=== PATIENT | male | born 1975 | race Caucasian/White ===

== ENCOUNTER 2017-02-01 20:25 | Inpatient (IN) | payer MEDICAID ==
[~2017-02-01] VITALS: Ht 177.8 cm; Wt 70.3 kg
[2017-02-01 21:12] LABS: BASOPHIL % 0.6 % (0-2); PLATELET COUNT 316 x10^3mcL (130-400)
[2017-02-01 21:29] LABS: CARBON DIOXIDE 29.1 mmol/L (21-32); CHLORIDE SERUM 102 mmol/L (98-107); CREATININE SERUM 1.1 mg/dL (0.7-1.3); GFR1 > 60 mL/min; GLUCOSE SERUM 104 mg/dL (74-106); POTASSIUM SERUM 4.2 mmol/L (3.5-5.1); SODIUM SERUM 139 mmol/L (136-145)
[2017-02-01 21:34] LABS: ALBUMIN 3.1 g/dL (3.4-5.0); ALKALINE PHOSPHATASE 106 U/L (46-116); ALT/SGPT 30 U/L (16-63); AST/SGOT 26 U/L (15-37); BILIRUBIN TOTAL 0.81 mg/dL (0.20-1.00); TOTAL PROTEIN, SERUM 7.7 g/dL (6.4-8.2)
[2017-02-01] MEDS ORDERED: LASIX20 MG PO (23:48)
[2017-02-02] VITALS (7 sets, daily range): BP systolic 98–122; BP diastolic 71–84
[2017-02-02 02:04] LABS: MAGNESIUM 1.9 mg/dL (1.8-2.4); PHOSPHOROUS 4.3 mg/dL (2.5-4.9)
[2017-02-02 02:06] LABS: CHOLESTEROL/HDL RATIO 3.9
[2017-02-02 02:15] LABS: FREE T4 1.19 ng/dL (0.76-1.46); FREE THYROXINE INDEX 2.7 ug/dL (1.4-4.5); T4(THYROXINE) 7.2 ug/dL (4.7-13.3)
[2017-02-02 02:16] LABS: T3 TOTAL 1.16 ng/mL
[2017-02-02 04:27] LABS: microscopic required? NO
[2017-02-02 04:36] LABS: urine erythrocyte NEGATIVE (NEGATIVE)
[2017-02-02 04:45] LABS: AMPHETAMINE QUAL UR NONE DETECTED (NEG <=1000)
[2017-02-02 06:32] LABS: BASOPHIL % 0.3 % (0-2); PLATELET COUNT 355 x10^3mcL (130-400)
[2017-02-02 06:50] LABS: RED CELL DISTRIBUTION WIDTH 18.7 % (11.5-14.5)
[2017-02-02 07:06] LABS: CALCIUM 9.2 mg/dL (8.5-10.1); CHLORIDE SERUM 100 mmol/L (98-107); CREATININE SERUM 1.3 mg/dL (0.7-1.3); GFR1 > 60 mL/min; GLUCOSE SERUM 76 mg/dL (74-106); PHOSPHOROUS 4.6 mg/dL (2.5-4.9); SODIUM SERUM 139 mmol/L (136-145)
[2017-02-03 05:50] VITALS: BP 111/76
[2017-02-03 06:57] LABS: BASOPHIL % 0.6 % (0-2); PLATELET COUNT 330 x10^3mcL (130-400)
[2017-02-03 07:01] LABS: RED CELL DISTRIBUTION WIDTH 18.7 % (11.5-14.5)
[2017-02-03 07:06] LABS: CALCIUM 9.1 mg/dL (8.5-10.1); CARBON DIOXIDE 27.4 mmol/L (21-32); CHLORIDE SERUM 99 mmol/L (98-107); CREATININE SERUM 1.1 mg/dL (0.7-1.3); GFR1 > 60 mL/min; GLUCOSE SERUM 105 mg/dL (74-106); MAGNESIUM 2.5 mg/dL (1.8-2.4); PHOSPHOROUS 4.6 mg/dL (2.5-4.9); POTASSIUM SERUM 3.8 mmol/L (3.5-5.1); SODIUM SERUM 136 mmol/L (136-145)
[2017-02-03 08:52] VITALS: BP 101/68
[2017-02-03] MEDS ORDERED: CARVEDILOL3.125 M1 PO (12:32)
[2017-02-03] MEDS ORDERED: LASIX40 MG PO (12:33)
[2017-02-03] MEDS ORDERED: BENAZEPRIL10 M1 PO (12:33)
[2017-02-03] MEDS ORDERED: NEIGHBOR P PO (12:35)
[2017-02-03 12:49] VITALS: BP 112/79
[2017-02-03] MEDS ORDERED: ALD25 PO (13:40)
[2017-02-03] MEDS ORDERED: PROAIR HFA8.5 GM IH (13:42)
[2017-02-03 14:29] VITALS: BP 112/79
== END 2017-02-03 15:45 | disposition home or self-care (01) | DRG 194 ==
LOC: ED 20:25 → DU 23:38
PROVIDERS: Emergency Medicine; ADMIT Family Medicine
DX: I50.43 Acute on chronic combined systolic (congestive) and diastolic (congestive) heart failure (principal); N17.0 Acute kidney failure with tubular necrosis; E44.0 Moderate protein-calorie malnutrition; K85.90 Acute pancreatitis without necrosis or infection, unspecified; E11.65 Type 2 diabetes mellitus with hyperglycemia; K21.9 Gastro-esophageal reflux disease without esophagitis; N18.9 Chronic kidney disease, unspecified; F10.20 Alcohol dependence, uncomplicated; F15.21 Other stimulant dependence, in remission; D64.9 Anemia, unspecified; Z68.22 Body mass index [BMI] 22.0-22.9, adult; Z87.891 Personal history of nicotine dependence
CPT/HCPCS: 80307; 82962; 83880; 84439; 94150; G0480; J1940; J7030; J7620; Q0092

== ENCOUNTER 2020-08-24 05:15 | Observation (INO) | payer OTHER ==
[~2020-08-24] VITALS: Ht 177.8 cm; Wt 90.7 kg
[~2020-08-24 05:15] MED LIST: ALD25 PO; BENAZEPRIL10 M1 PO; CARVEDILOL3.125 M1 PO; LASIX20 MG PO; LASIX40 MG PO; NEIGHBOR P PO; PROAIR HFA8.5 GM IH
[2020-08-24 05:21] VITALS: Ht 177.8 cm; Wt 90.7 kg
[2020-08-24] MEDS ORDERED: KLOR-CON M1010 MEQ PO (06:45)
[2020-08-24] MEDS ORDERED: MEN'S MULTIVIT1 EAC1 PO (06:46)
[2020-08-24] MEDS ORDERED: ASPIR 8181 MG PO (06:46)
[2020-08-24] MEDS ORDERED: LIPITOR20 MG PO (06:46)
[2020-08-24] MEDS ORDERED: ZESTRIL10 MG PO (06:47)
[2020-08-24] MEDS ORDERED: BIDIL TABLET1 EACH PO (06:47)
[2020-08-24] MEDS ORDERED: CARVEDILOL25 M1 PO (06:48)
[2020-08-24 07:09] LABS: CALCIUM 8.8 mg/dL (8.5-10.1); CHLORIDE SERUM 103 mmol/L (98-107); CREATININE SERUM 1.2 mg/dL (0.7-1.3); GFR1 > 60 mL/min; GLUCOSE SERUM 119 mg/dL (74-106); POTASSIUM SERUM 3.7 mmol/L (3.5-5.1); SODIUM SERUM 136 mmol/L (136-145)
[2020-08-24 07:17] LABS: ALBUMIN 4.3 g/dL (3.4-5.0); ALKALINE PHOSPHATASE 46 U/L (46-116); ALT/SGPT 23 U/L (16-63); AST/SGOT 16 U/L (15-37); BILIRUBIN TOTAL 0.6 mg/dL (0.20-1.00); LIPASE 66 IU/L (73-393); TOTAL PROTEIN, SERUM 7.8 g/dL (6.4-8.2)
[2020-08-24 07:38] LABS: BASOPHIL % 0.3 % (0-2); PLATELET COUNT 349 x10^3mcL (130-400); RED CELL DISTRIBUTION WIDTH 13.6 % (11.5-14.5)
[2020-08-24 08:35] LABS: AMPHETAMINE QUAL UR NONE DETECTED (See below)
[2020-08-24 09:47] LABS: MAGNESIUM 2.2 mg/dL (1.8-2.4)
[2020-08-24 09:52] LABS: CHOLESTEROL/HDL RATIO 4.8
[2020-08-24 12:18] VITALS: BP 138/93
[2020-08-24 17:29] VITALS: BP 152/93
[2020-08-24 18:12] VITALS: BP 134/76
== END 2020-08-24 18:25 | disposition home or self-care (01) ==
LOC: ED 05:15 → DU 08:40
PROVIDERS: Emergency Medicine; ADMIT Internal Medicine; ATTEND Internal Medicine
DX: R07.89 Other chest pain (principal); F15.90 Other stimulant use, unspecified, uncomplicated; R51.9 Headache, unspecified; F10.10 Alcohol abuse, uncomplicated; I42.0 Dilated cardiomyopathy; Z95.810 Presence of automatic (implantable) cardiac defibrillator; Z20.828 Contact with and (suspected) exposure to other viral communicable diseases
CPT/HCPCS: 83880; G0378; J1200; J2270; J2405; J2765